=== PATIENT | female | born 1940 | race Caucasian/White ===

== ENCOUNTER → 2022-04-28 14:22 | Outpatient (CLI) | payer MEDICARE, MEDICAID, SELFPAY ==
--- NOTE | 2022-04-28 14:25 | DI.US.S_ITS ---
PROCEDURE: US TRANSVAGINAL INDICATIONS: PMB, Pelvic Pain TECHNIQUE: Real-time scanning was performed of the pelvic organs, with image documentation. Additional endovaginal scanning was necessary due to incomplete visualization of the adnexal and endometrial structures by transabdominal scanning. COMPARISON: None. FINDINGS: Uterus: Uterus is anteverted and normal in size at 7.4 x 3.9 x 2.4 cm. The myometrium is homogeneous. Left anterior fundal calcification measuring 0.5 cm. The endometrium measures 6 mm combined thickness. There is fluid within the cervical canal. Hyperechoic structure at the cervix measuring 1.4 x 1 x 0.5 cm. Ovaries: Not identified. Other: No pathologic free abdominal or pelvic fluid. IMPRESSION: 1. Hyperechoic structure at the cervix measuring 1.4 cm is indeterminate. This could represent a polyp, neoplasm, or debris. -MRI pelvis with IV contrast with further evaluation could be helpful. 2. Mild thickening of the endometrium measuring up to 0.6 cm. -Recommend endometrial biopsy if not yet performed. 3. Small uterine calcification or calcified fibroid. 4. Ovaries are not identified. We strive to produce accurate, complete, and clear reports of imaging services. To assist us in improving patient care, this report was composed using standard report templates and voice recognition software. Therefore, it may contain abnormal punctuation, insertions and/or omissions. Occasional wrong-word or sound-alike substitutions may occur. Though we review the report and make efforts to correct it, we do recommend that the report be read carefully in proper context to recognize any text inaccuracies. Dictated by: Franko Vo M.D. on 04/28/2022 at 17:14 Approved by: Franko Vo M.D. on 04/28/2022 at 17:20
== END ==
PROVIDERS: Family Provider Nurse Practitioner; PCP Physician Assistant; Referring Provider Obstetrics & Gynecology; Visit Provider Obstetrics & Gynecology
DX: N95.0 Postmenopausal bleeding (principal); R93.89 Abnormal findings on diagnostic imaging of other specified body structures; N85.8 Other specified noninflammatory disorders of uterus; N88.9 Noninflammatory disorder of cervix uteri, unspecified
CPT/HCPCS: 76830

== ENCOUNTER → 2022-05-05 15:26 | Outpatient (CLI) | payer MEDICARE, MEDICAID, SELFPAY | PROVIDERS: Family Provider Nurse Practitioner; PCP Physician Assistant; Visit Provider Obstetrics & Gynecology | DX: N93.9 Abnormal uterine and vaginal bleeding, unspecified (principal); R10.2 Pelvic and perineal pain | CPT/HCPCS: 87086 ==

== ENCOUNTER → 2022-05-23 09:32 | Outpatient (CLI) | payer MEDICARE, MEDICAID, SELFPAY ==
[2022-05-23 10:55] LABS: Appearance Urine UA CLEAR; Bilirubin Urine UA NEGATIVE (NEGATIVE); Color Urine UA YELLOW; Glucose Urine UA NEGATIVE (Negative); Ketones Urine UA NEGATIVE (NEGATIVE); Leukocyte Esterase Urine UA NEGATIVE (NEGATIVE); Nitrite Urine UA NEGATIVE (Negative); Occult Blood Urine UA NEGATIVE (Negative); Protein Urine UA NEGATIVE (Negative); Urobilinogen Urine UA 0.2 E.U./dL (0.2)
[2022-05-23 11:03] LABS: BUN Creatinine Ratio 27.1 (6-22); Blood Urea Nitrogen 19 mg/dL (7-17); Calcium 9.3 mg/dL (8.4-10.2); Carbon Dioxide 30 mmol/L (22-32); Chloride 101 mmol/L (98-107); Estimated Glomerular Filt Rate > 60 mL/min (>60); Glucose 78 mg/dL (80-110); HEMOLYSIS < 15 (0-50); Potassium 4.2 mmol/L (3.4-5.1); Sodium 138 mmol/L (137-145)
[2022-05-23 11:11] LABS: Bacteria Urine None Seen; Culture Indicated Urine Cult Not Indicated; RBC Urine None Seen (0-5/HPF); Squamous Epithelial Cell Urine None Seen (0-5/HPF); WBC Urine None Seen (0-5/HPF)
== END ==
PROVIDERS: Family Provider Nurse Practitioner; PCP Family Medicine; Referring Provider Obstetrics & Gynecology; Visit Provider Obstetrics & Gynecology
DX: N39.0 Urinary tract infection, site not specified (principal); R31.0 Gross hematuria
CPT/HCPCS: 36415; 80048; 81001

== ENCOUNTER → 2022-05-23 10:26 | Outpatient (CLI) | payer MEDICARE, MEDICAID, SELFPAY ==
--- NOTE | 2022-05-23 11:17 | DI.CT.S_ITS ---
PROCEDURE: CT IVP A/P W/WO INDICATIONS: GROSS HEMATURIA TECHNIQUE: Optional 5 mm thick noncontrast images acquired from the diaphragm to the symphysis pubis. After the administration of intravenous contrast, 5 mm thick images acquired from the diaphragm to the symphysis pubis after a 10-minute delay. 2 mm thick coronal and sagittal reformats were then performed of the kidneys and ureters. For radiation dose reduction, the following was used: automated exposure control, adjustment of mA and/or kV according to patient size. COMPARISON: None. FINDINGS: Image quality: Excellent. Lung bases: Basilar scarring/atelectasis. Urinary system: Subcentimeter lesions are too small to characterize (Bosniak 2). There are parapelvic cysts. The renal veins are patent. No hydronephrosis or renal calculi. No suspicious finding involving the ureters. The bladder is under distended, but without focal suspicious lesion on limited CT evaluation. Other solid organs: Liver is unremarkable. Gallbladder is under distended. No biliary ductal dilation. Pancreas is unremarkable. Spleen is unremarkable. Bilateral adrenal adenomas, measuring up to 1.9 centimeters on the right. Peritoneum and bowel: No bowel obstruction. No pathologic free fluid. Nodes and vessels: Prominent indeterminate upper abdominal lymph nodes are present. There are also prominent veins in the upper abdomen. The portal vein is patent. No abdominal aortic aneurysm. Abdominal wall: Small fat containing umbilical hernia. Pelvis: No pathologic free fluid or adenopathy by size criteria. There are prominent veins. Borderline thickening of the endometrium measuring 5 millimeters. Calcification could represent a calcified fibroid. There is heterogeneity in the endometrium (5/73). There is also fullness of the cervix, without a defined mass. Bones: No acute or suspicious osseous abnormality. IMPRESSION: No upper tract disease identified. Lower tract disease could be better evaluated with cystoscopy if needed. Heterogeneity and borderline thickening of the endometrium (5/73). There is also fullness of the cervix without defined mass. Ultrasound was already obtained on 04/28/2022. MRI of the pelvis is recommended depending on clinical context. Bilateral adrenal adenomas. Dictated by: Deigo Balderrama M.D. on 05/23/2022 at 15:30 Approved by: Diego Balderrama M.D. on 05/23/2022 at 15:40
== END ==
PROVIDERS: Family Provider Nurse Practitioner; PCP Family Medicine; Referring Provider Family Medicine; Visit Provider Family Medicine
DX: R31.0 Gross hematuria (principal); N39.0 Urinary tract infection, site not specified
CPT/HCPCS: 36415; 74178; 80048; 81001

== ENCOUNTER → 2024-10-20 13:06 | Outpatient (CLI) | payer MEDICARE, MEDICAID, SELFPAY ==
[2024-10-20 19:35] LABS: Vitamin D 25 Hydroxy (D3) 15.2 ng/mL (30.0-100.0)
[2024-10-20 19:48] LABS: Thyroid Stimulating Hormone 2.01 uIU/mL (0.47-4.68)
[2024-10-20 19:52] LABS: Ferritin 42 ng/mL (11-264)
[2024-10-23 16:36] LABS: Deamidated Gliadin Ab IgA 4 units (0-19); Deamidated Gliadin Ab IgG <1 units (0-19); Immunoglobulin A,Qn 304 mg/dL (64-422); t-Transglutaminase IgA 2 U/mL (0-3)
[2024-10-29 11:13] LABS: DQ8 (DQA1 03XX, DQB1 0302) Positive (.)
== END ==
PROVIDERS: Family Provider Nurse Practitioner; PCP Family Medicine; Visit Provider Family Medicine
DX: R19.8 Other specified symptoms and signs involving the digestive system and abdomen (principal); K90.9 Intestinal malabsorption, unspecified; M81.0 Age-related osteoporosis without current pathological fracture; R79.89 Other specified abnormal findings of blood chemistry; E55.9 Vitamin D deficiency, unspecified; E53.8 Deficiency of other specified B group vitamins
CPT/HCPCS: 81377; 82306; 82728; 82784; 83516; 84443

== ENCOUNTER → 2024-12-10 12:19 | Outpatient (CLI) | payer MEDICARE, MEDICAID, SELFPAY ==
--- NOTE | 2024-12-10 12:23 | DI.RAD.S_ITS ---
PROCEDURE: XR DEXA AXIAL SKELETON INDICATIONS: osteoporosis, low vitamin D COMPARISON: None. FINDINGS: Lumbar Spine: Bone mineral density 0.735 g/cm2, T score -2.8, osteoporosis. Left Femoral Neck: Bone mineral density 0.443 g/cm2, T score -3.7, osteoporosis. Left Hip: Bone mineral density 0.606 g/cm2, T score -2.8, osteoporosis. Fracture Risk Calculation (when applicable): 10-year fracture risk of a major osteoporotic fracture 31 percent and of a hip fracture 15 percent. FRAX score is not valid when there is osteoporosis. (T score greater or equal to -1.0 to: NORMAL) (T score from -1.1 to -2.4: OSTEOPENIA) (T score less than or equal to -2.5: OSTEOPOROSIS) IMPRESSION: Osteoporosis. The patient is at a high risk of fracture. Follow-up guidelines as follows: Osteoporosis: Consider a repeat DEXA and Vertebral Fracture Assessment (VFA) exam in 2 years or sooner if medically necessary, to reassess this patient's status. Osteopenia: Consider a repeat DEXA in 2-3 years to reassess this patient's status, or if there is a new clinical indication. Normal: Consider a repeat DEXA in 5 years or sooner, or if there is a new clinical indication. All treatment decisions require clinical judgment and consideration of individual patient factors, including patient preferences, comorbidities, previous drug use, risk factors not captured in the FRAX model (e.g., frailty, falls, vitamin D deficiency, increased bone turnover, interval significant decline in bone density ) and possible under- or over-estimation of fracture risk by FRAX. In addition, the NOF Guide recommends that FDA-approved medical therapies be considered in postmenopausal women and men age >= 50 years with a: * Hip or vertebral (clinical or morphometric) fracture * T-score of <=-2.5 at the spine or hip * Ten-year fracture probability by FRAX of >= 3% for hip fracture or >=20% for major osteoporotic fracture. Dictated by: Ludy Doherty M.D. on 12/10/2024 at 17:32 Approved by: Ludy Doherty M.D. on 12/10/2024 at 17:33
== END ==
PROVIDERS: Family Provider Nurse Practitioner; PCP Family Medicine; Referring Provider Family Medicine; Visit Provider Family Medicine
DX: Z78.0 Asymptomatic menopausal state (principal); M81.0 Age-related osteoporosis without current pathological fracture
CPT/HCPCS: 77080

== ENCOUNTER → 2025-05-26 11:42 | Outpatient (CLI) | payer MEDICARE, MEDICAID, SELFPAY ==
[2025-05-26 18:59] LABS: Add Manual Diff / Slide Review NO; Hematocrit 36.8 % (36-46); Hemoglobin 12.2 g/dL (12.0-16.0); Lymphocytes Absolute Auto 2400 /uL (1100-4500); Mean Corpuscular HGB Conc 33.2 % (30-36); Mean Corpuscular Hemoglobin 28.2 PG (26-34); Mean Corpuscular Volume 85.0 fL (80-100); Platelet Count 415 X10^3/uL (150-400)
[2025-05-26 19:16] LABS: HEMOLYSIS < 15 (0-50); Iron 52 ug/dL (37-170)
[2025-05-26 19:20] LABS: Alanine Aminotransferase 13 IU/L (<35); Albumin 4.4 g/dL (3.5-5.0); Albumin Globulin Ratio 1.1 (1.0-2.8); Alkaline Phosphatase 124 U/L (38-126); Blood Urea Nitrogen 20 mg/dL (7-17); Calcium 9.3 mg/dL (8.4-10.2); Carbon Dioxide 25 mmol/L (22-32); Chloride 101 mmol/L (98-107); Creatine Kinase 34 U/L (30-135); Estimated Glomerular Filt Rate > 60 mL/min (>60); Globulin 3.9 g/dL (1.7-4.1); Glucose 91 mg/dL (70-99); HEMOLYSIS < 15 (0-50); Potassium 4.6 mmol/L (3.4-5.1); Sodium 137 mmol/L (137-145); Total Protein 8.3 g/dL (6.3-8.2)
[2025-05-26 19:23] LABS: Vitamin D 25 Hydroxy (D3) 13.0 ng/mL (30.0-100.0)
[2025-05-26 19:28] LABS: Percent Iron Saturation 21 % (15-50); Total Iron Binding Capacity 246 ug/dL (265-497); Transferrin 204 mg/dL (206-381)
[2025-05-26 19:48] LABS: Thyroid Stimulating Hormone 3.58 uIU/mL (0.47-4.68)
[2025-05-26 19:55] LABS: Ferritin 94 ng/mL (11-264)
[2025-05-26 20:24] LABS: Folate 6.7 ng/mL (2.76-20.0); Vitamin B12 285 pg/mL (239-931)
== END ==
PROVIDERS: Family Provider Nurse Practitioner; PCP Family Medicine; Visit Provider Family Medicine
DX: E56.9 Vitamin deficiency, unspecified (principal); R25.1 Tremor, unspecified; E53.8 Deficiency of other specified B group vitamins; E55.9 Vitamin D deficiency, unspecified; R19.8 Other specified symptoms and signs involving the digestive system and abdomen; M62.81 Muscle weakness (generalized); R63.1 Polydipsia; M81.0 Age-related osteoporosis without current pathological fracture
CPT/HCPCS: 80053; 82306; 82550; 82607; 82728; 82746; 83540; 83550; 84443; 85025; 85651; 86140

== ENCOUNTER → 2025-08-25 12:03 | Outpatient (CLI) | payer MEDICARE, MEDICAID, SELFPAY ==
--- NOTE | 2025-08-25 12:08 | DI.US.S_ITS ---
PROCEDURE: US PELVIC COMPLETE INDICATIONS: persistent bloating and gas, history of abnl pelvic US 2021 TECHNIQUE: Real-time scanning was performed of the pelvic organs, with image documentation. Additional endovaginal scanning was necessary due to incomplete visualization of the adnexal and endometrial structures by transabdominal scanning. COMPARISON: [facility], US, US TRANSVAGINAL, 04/28/2022, 14:51. FINDINGS: Uterus: Uterus is anteverted and normal in size at 7.3 x 4.0 x 2.4 cm. The myometrium is heterogeneous. The endometrium measures 2 mm combined thickness. Fluid within the endometrial canal with heterogeneous cystic structure measuring 12 x 9 x 5 mm with possible feature vessel. Macro calcification in the left anterior uterine body measuring 7 mm. Solid structure within the endocervical canal near the internal os is measuring 13 x 9 x 5 mm with feeder vessel. Ovaries: The right ovary is not seen. The left ovary measures 1.4 x 1.0 x 0.7 cm, with a calculated ovarian volume of 0.5 cc. Normal appearance of the left ovary. Other: No pathologic free abdominal or pelvic fluid. IMPRESSION: Solid structure within the endocervical canal measuring 13 mm concerning for polyp. Recommend gynecology consultation. Heterogeneous cystic structure within the endometrial canal measuring 12 mm. Fluid is seen within the endometrial canal. The endometrial itself measures 2 mm in combined thickness. Left ovary is normal in appearance. Right ovary is not seen. We strive to produce accurate, complete, and clear reports of imaging services. To assist us in improving patient care, this report was composed using standard report templates and voice recognition software. Therefore, it may contain abnormal punctuation, insertions and/or omissions. Occasional wrong-word or sound-alike substitutions may occur. Though we review the report and make efforts to correct it, we do recommend that the report be read carefully in proper context to recognize any text inaccuracies. Dictated by: Cedric De Jesus M.D. on 08/26/2025 at 8:05 Approved by: Cedric De Jesus M.D. on 08/26/2025 at 8:08
== END ==
LOC: US 12:06
PROVIDERS: PCP Family Medicine; Referring Provider Family Medicine; Visit Provider Family Medicine
DX: N88.9 Noninflammatory disorder of cervix uteri, unspecified (principal); R14.0 Abdominal distension (gaseous); R93.89 Abnormal findings on diagnostic imaging of other specified body structures
CPT/HCPCS: 76830; 76856